=== PATIENT | female | born 1955 | race Caucasian/White ===

== ENCOUNTER 2018-05-09 09:00 | Outpatient (RCR) | payer BC | END 2018-05-09 09:30 | disposition home or self-care (01) | LOC: OT 09:00 | DX: M54.12 Radiculopathy, cervical region (principal); R29.898 Other symptoms and signs involving the musculoskeletal system ==

== ENCOUNTER 2020-02-05 09:45 | Outpatient (RCR) | payer BC | END 2020-02-05 10:15 | disposition still patient (30) | LOC: PT 09:45 | DX: Z47.1 Aftercare following joint replacement surgery (principal); Z96.652 Presence of left artificial knee joint ==

== ENCOUNTER → 2020-04-09 | Outpatient (CLI) | payer BC | LOC: RAD 08:00 | DX: I12.9 Hypertensive chronic kidney disease with stage 1 through stage 4 chronic kidney disease, or unspecified chronic kidney disease (principal); N18.30 Chronic kidney disease, stage 3 unspecified ==

== ENCOUNTER → 2022-05-04 | Outpatient (CLI) | payer MEDICARE ==
[~2022-05-04] MED LIST: COLCHICINE0.6 M1 PO; LOSARTAN POTASS50 M1 PO; METOPROLOL SUC100 M1 PO
== END ==
LOC: RAD 10:52 → VAS 10:52
DX: N18.32 Chronic kidney disease, stage 3b (principal); I10 Essential (primary) hypertension; R60.0 Localized edema